=== PATIENT | male | born 1985 | race Caucasian/White ===

== ENCOUNTER 2022-09-04 15:42 | Emergency (ER) | payer OTHER, SELFPAY ==
--- NOTE | ~2022-09-04 | XR_ITS ---
Left Hand Technique: PA, oblique, and lateral views were obtained. Clinical History: Pain Findings: No acute fracture or dislocation is seen. Osseous alignment is anatomic. Joint spaces are p reserved. Soft tissues are unremarkable. Impression: Unremarkable left hand. Reviewed, dictated and finalized at location [facility] DIRECT[employer] Impression: Unremarkable left hand.
--- NOTE | 2022-09-04 15:47 | ED.EXTPRO ---
HPI - Extremity Problem General Chief complaint: Extremity Injury, Upper Stated complaint: swollen/sore left hand Time Seen by Provider: 09/04/22 16:00 Source: patient and RN notes reviewed Mode of arrival: ambulatory Limitations: no limitations History of Present Illness HPI Narrative: Three 7-year-old male presents concern for swelling to his left dorsal hand. He reports he is right-handed. He reports he did not injure the hand that he is aware of, however he works at [employer] and was working out in a cold yesterday and his hands felt numb because of the cold. He reports he noticed some pain below the foot 2nd digit last night then woke up with swelling and pain this morning. He reports pain is exacerbated when he flexes the 2nd digit. He denies any open skin, warmth, rash, bruising. MD Complaint: extremity swelling Related Data Home Medications Medication Instructions Recorded Confirmed No Home Medications 09/04/22 09/04/22 Allergies Allergy/AdvReac Type Severity Reaction Status Date / Time No Known Allergies Allergy Verified 09/04/22 15:57 Review of Systems Review of Systems: CONSTITUTIONAL: Denies malaise, chills, sweats, or fever. SKIN: Denies rash or itching, open skin, laceration, abrasion, redness, warmth, swelling. MUSCULOSKELETAL: Reports left hand swelling and pain NEUROLOGIC: Denies numbness, weakness All systems reviewed & are unremarkable except as noted in HPI and below PMFSH Comments At time of signature, agree with nursing past medical, surgical, social and family history. There is no relevant family history pertinent to the presenting complaint Exam Narrative: GENERAL: Well-appearing, well-nourished, and in no acute distress. HEAD: Normocephalic, atraumatic. EYES: PERRLA, conjunctivae clear NECK: Supple. CHEST: Speaks in full sentences. No respiratory distress. HEART: Regular rate and rhythm. Normal and equal peripheral pulses. EXTREMITIES: Left hand and digits have normal strength and sensation, normal range of motion. Localized edema and tenderness without erythema or ecchymosis noted to the dorsal hand beneath digits 3 4. 5/5 strength with Ale digit flexion and extension. Normal sensation with sensitivity to light touch and pain. No point tenderness. No open wounds, no skin tenting, no devitalized tissue or atrophy, no trophic changes, no obvious deformity, alignment normal, nearby joints and structures intact. Distal pulses palpable and equal bilaterally, skin warm, dry, pink. Capillary refill less than 3 seconds. SKIN: Warm, dry, no rash. NEURO: Alert and oriented x3. PSYCH: Normal mood and affect Course Course Emergency Course: Patient is aware of diagnosis, understands and agrees to treatment plan. Anticipatory guidance given. Patient agrees to follow-up as directed and is aware of reasons to seek care at the emergency department. Portions of this record may have been created with voice recognition software Level of Care: Express Care Visit Vital Signs Vital signs: Reviewed. MDM - Extremity (Nontraumatic) Imaging Data My impression: Images reviewed, interpreted by radiologist, agree, see report. Radiologist's impression: Left Hand Technique: PA, oblique, and lateral views were obtained. Clinical History: Pain Findings: No acute fracture or dislocation is seen. Osseous alignment is anatomic. Joint spaces are preserved. Soft tissues are unremarkable. Impression: Unremarkable left hand. Critical Care Time Critical Care Time Critical Care Time: No Discharge Plan Discharge Clinical Impression: Hand swelling Patient Disposition: Home, Self-Care Condition: Stable Instructions: Hand Sprain (ED) Additional Instructions: Avoid activities that cause pain until the pain subsides. Ice to the area 20-30 minutes 4-6 times a day Elevate above heart Elastic wrap or orthopedic splint as directed for comfort for the next 5-7 days Tylenol for lesser pa
[2022-09-04 15:49] VITALS: BP 170/98; PULSE 97; RESP 18; TEMP 37.2; O2SAT 100
--- NOTE | 2022-09-04 16:11 | PC.NURSE ---
1608- Pt transferred to [facility] for Xray d/t xray being unavailable today at this facility. RN to RN report given to Marlen Garcia
== END 2022-09-04 17:18 | disposition home or self-care (01) ==
PROVIDERS: Emergency Provider Nurse Practitioner; PCP Nurse Practitioner Adult Health
DX: R22.32 Localized swelling, mass and lump, left upper limb (principal)
CPT/HCPCS: 73130; 99213; G0463

== ENCOUNTER 2024-06-22 14:53 | Emergency (ER) | payer OTHER, SELFPAY ==
[2024-06-22 15:05] VITALS: BP 127/79; PULSE 98; RESP 16; TEMP 36.7; O2SAT 100
--- NOTE | 2024-06-22 15:12 | ED.GENADULT ---
HPI - General Adult General Chief complaint: Wound/Laceration Stated complaint: wound on left hand Time Seen by Provider: 06/22/24 15:12 Source: patient, RN notes reviewed and old records reviewed Mode of arrival: ambulatory Limitations: no limitations History of Present Illness HPI narrative: 39-year-old male presents to the [facility] with a in wound that he is concerned for not healing and infection to the left hand dorsal aspect. States approximately 10-14 days ago had burned his hand on a motor to a pan washer hand Patient states his last tetanus was 8-9 years ago, declines Tdap at this time Onset (ago): day(s) (-) Related Data Allergies Allergy/AdvReac Type Severity Reaction Status Date / Time No Known Allergies Allergy Verified 09/04/22 15:57 Review of Systems Review of Systems: All systems reviewed & are unremarkable except as noted in HPI and below Constitutional: Constitutional: Reports no additional constitutional complaints Eyes: Eyes: Reports no additional eye complaints ENT: Reports system reviewed and no additional complaints, except as documented Cardiovascular: Cardiovascular: Reports no additional cardiovascular complaints, Denies chest pain and Denies dyspnea Respiratory: Respiratory: Reports no additional respiratory complaints, Denies chest congestion, Denies cough and Denies dyspnea Gastrointestinal: Gastrointestinal: Reports no additional gastrointestinal complaints, Denies abdominal pain, Denies nausea and Denies vomiting Musculoskeletal: Musculoskeletal: Reports no additional musculoskeletal complaints Integumentary/Breasts: Skin/Breast: Reports as per HPI Neurologic: Reports system reviewed and no additional complaints, except as documented Psychiatric: Psychiatric: Reports no additional psychiatric complaints Allergic/Immunologic: Allergic/Immunologic: Reports no additional allergic/immunologic complaints PMFSH Comments At the time of my signature, I reviewed and agree with the nursing past medical, surgical, social, and family history. There is no relevant family history pertinent to the patient complaint. Exam Const: General: cooperative, healthy appearing, comfortable, no acute distress, well developed, alert and well nourished Nutritional Appearance: well nourished Orientation/consciousness: patient oriented x3 Limitations: no limitations HENMT: Head: normal to inspection Ears: hearing grossly normal bilaterally and external ears normal Face/Nose/Sinus: Normal external nose present, normal facial exam and face symmetric Face and sinus: normal facial exam and face symmetric Eyes: General: appearance normal, both eyes and all related structures Alignment and Position: alignment normal Periorbital: periorbital findings normal Neck: Neck: normal visual inspection, full ROM, no lymphadenopathy and no meningeal signs Chest: Chest palpation & inspection: normal inspection of the chest Resp: Effort & Inspection: normal respiratory effort and able to speak in complete sentences Cardio: Rate: regular rate Skin: General skin exam: normal color and no rashes or lesions noted Lesions: no lesions Rashes: no rashes Trauma: no lacerations or abrasions Other: 3 x 1 cm scabbed over, burn to the dorsal hand. Neuro: General: patient oriented x3, gait normal, tone normal, moves all extremities and no meningeal signs Cognition (Neuro): normal cognition Speech: normal speech Gait exam (Neuro): Normal gait present Extrem: General: normal to inspection, full ROM, capillary refill normal and normal gait Psych: Appearance: grossly normal and well kempt Mental Status: mental status grossly normal Speech and movement: Normal speech and movement present and Clear speech present Affect: normal affect Attitude: cooperative Course Course Level of Care: Express Care Visit Vital Signs Vital signs: Vital Signs Temperature 98.0 F 06/22/24 15:05 Pulse Rate 98 06/22/24
== END 2024-06-22 15:36 | disposition home or self-care (01) ==
PROVIDERS: Emergency Provider Nurse Practitioner
DX: T23.062A Burn of unspecified degree of back of left hand, initial encounter (principal); X19.XXXA Contact with other heat and hot substances, initial encounter
CPT/HCPCS: 99213; G0463

== ENCOUNTER 2024-11-13 15:29 | Emergency (ER) | payer OTHER, SELFPAY ==
[2024-11-13 15:38] VITALS: BP 144/85; PULSE 97; RESP 16; TEMP 36.3; O2SAT 99
--- NOTE | 2024-11-13 16:04 | ED.EXTPRO ---
HPI - Extremity Problem General Chief complaint: Skin/Abscess/Foreign Body Stated complaint: open sores both arms Time Seen by Provider: 11/13/24 16:05 Source: patient, RN notes reviewed and old records reviewed Mode of arrival: ambulatory Limitations: no limitations History of Present Illness HPI Narrative: 39-year-old male presents to the [facility] with bilateral forearm- open sores, redness, swelling. Patient reports has been getting worse over the last 2 weeks. Has been injecting fentanyl. Last use of fentanyl was this morning Onset (ago): week(s) (2) Related Data Home Medications ?Medication ?Instructions ?Recorded ?Confirmed ?Last Taken ?Type No Home Medications 11/13/24 11/13/24 Unknown History Allergies Allergy/AdvReac Type Severity Reaction Status Date / Time No Known Allergies Allergy Verified 11/13/24 15:35 Review of Systems Review of Systems: All systems reviewed & are unremarkable except as noted in HPI and below Constitutional: Constitutional: Reports no additional constitutional complaints ENT: Reports system reviewed and no additional complaints, except as documented Cardiovascular: Cardiovascular: Reports no additional cardiovascular complaints, Denies chest pain and Denies dyspnea Respiratory: Respiratory: Reports no additional respiratory complaints, Denies chest congestion, Denies cough and Denies dyspnea Musculoskeletal: Musculoskeletal: Reports no additional musculoskeletal complaints Integumentary/Breasts: Skin/Breast: Reports as per HPI, Reports change in pigmentation, Reports erythema, Reports sores and Reports wounds PMFSH Comments At the time of my signature, I reviewed and agree with the nursing past medical, surgical, social, and family history. There is no relevant family history pertinent to the patient complaint. Exam Const: General: cooperative, healthy appearing, comfortable, no acute distress, well developed, alert and well nourished Nutritional Appearance: well nourished Orientation/consciousness: patient oriented x3 Limitations: no limitations HENMT: Head: normal to inspection Eyes: General: appearance normal, both eyes and all related structures Alignment and Position: alignment normal Neck: Neck: normal visual inspection, full ROM, no lymphadenopathy and no meningeal signs Chest: Chest palpation & inspection: normal inspection of the chest Resp: Effort & Inspection: normal respiratory effort and able to speak in complete sentences Cardio: Rate: regular rate Skin: General skin exam: normal color and no rashes or lesions noted Other: Bilateral forearms with erythema, right is circumferential. Multiple open wounds to the dorsal aspect of both forearms. Skin is very tight. Positive radial pulses bilateral Neuro: General: patient oriented x3, gait normal, moves all extremities and no meningeal signs Cognition (Neuro): normal cognition Speech: normal speech Gait exam (Neuro): Normal gait present Extrem: General: normal to inspection, full ROM, capillary refill normal and normal gait Psych: Appearance: grossly normal and well kempt Mental Status: mental status grossly normal Speech and movement: Normal speech and movement present and Clear speech present Affect: normal affect Attitude: cooperative Course Course Level of Care: Express Care Visit Vital Signs Vital signs: Vital Signs Temperature 97.3 F L 11/13/24 15:38 Pulse Rate 97 11/13/24 15:38 Respiratory Rate 16 11/13/24 15:38 Blood Pressure 144/85 H 11/13/24 15:38 Pulse Oximetry 99 11/13/24 15:38 Oxygen Delivery Room Air 11/13/24 15:38 Temperature 97.3 F L 11/13/24 15:38 Pulse Rate 97 11/13/24 15:38 Respiratory Rate 16 11/13/24 15:38 Blood Pressure 144/85 H 11/13/24 15:38 Pulse Oximetry 99 11/13/24 15:38 Oxygen Delivery Room Air 11/13/24 15:38 Reviewed Transfer Transfered to: [facility] Transportation: Other (POV, declined EMS) Transfer rationale: Patient with bilateral forearm cellulitis, open wounds sending for higher level of care Accepting physician: Spoke with Marianne BENEDICT, Dr. Lyles MDM - Extremity (Nontraumatic) MDM Narrative Medical decision making narrative: Patient presents with 2 week worsening of bilateral forearm cellulitis, redness, open wounds. Patient is stable, vitals normal. Concern for an abscess in both forearms as well as circumferential cellulitis in the right forearm. Transfer instructions reviewed with patient to go directly to the ER. Do not eat or drink until cleared by ER provider All questions have been answered, and the patient deny any further questions. Some parts of this dictation were generated by voice recognition software and may contain typographical and/or grammatical inaccuracies. Differential Diagnosis Differential diagnosis: Likely cellulitis and other (And healing wounds) Critical Care Time Critical Care Time Critical Care Time: No Discharge Plan Discharge Clinical Impression: Wounds, multiple open, arm Cellulitis Qualifiers: Site of cellulitis: extremity Site of cellulitis of extremity: upper extremity Laterality: unspecified laterality Qualified Code(s): L03.119 - Cellulitis of unspecified part of limb Patient Disposition: Acute Care Hospital Condition: Stable Patient Language: Syriac Prescriptions: No Action No Home Medications Follow-up/Referrals: PHYSICIAN,PROCTOLOGIST [Primary Care Provider] -
== END 2024-11-13 16:20 | disposition short-term general hospital (02) ==
PROVIDERS: Emergency Provider Nurse Practitioner
DX: T80.29XA Infection following other infusion, transfusion and therapeutic injection, initial encounter (principal); L03.114 Cellulitis of left upper limb; L03.113 Cellulitis of right upper limb; S51.802A Unspecified open wound of left forearm, initial encounter; S51.801A Unspecified open wound of right forearm, initial encounter; X58.XXXA Exposure to other specified factors, initial encounter; F11.90 Opioid use, unspecified, uncomplicated
CPT/HCPCS: 99212; G0463